=== PATIENT | female | born 1980 | race African-American/Black ===

== ENCOUNTER 2019-03-16 22:34 | Emergency (ER) | payer BC ==
[~2019-03-16 22:34] MED LIST: Iopamidol 370 76% 125 ML VIAL FS ONE
[2019-03-16 22:59] LABS: Clarity Clear (Clear); pH, Urine 6.5 (5.0-9.0)
[2019-03-16 23:00] LABS: Bilirubin Negative (Negative); Blood, Urine Trace (Negative); Glucose, Urine (Dipstick) Negative (Negative); Leukocyte Negative (Negative); Nitrite Negative (Negative); Protein, Urine (Dipstick) Negative (Neg-Trace); Urobilinogen 0.2 mg/dL (0.2-1.0)
[2019-03-16] MEDS ORDERED: Ketorolac Tromethamine 30 MG/ML VIAL ONE (23:03)
[2019-03-16] MEDS ORDERED: Ondansetron PF 4 MG/2 ML Vial ONE (23:03)
[2019-03-16 23:08] LABS: RBC/HPF 0-3 HPF (0-3); WBC/HPF 0-3 HPF (0-3)
[2019-03-16 23:11] LABS: Hemoglobin 12.3 g/dL (12.0-16.0); Mean Corpuscular HGB CONC 32.3 g/dL (32.0-36.0); Mean Corpuscular Hemoglobin 28.8 pg (27.0-31.0); Mean Corpuscular Volume 89.1 fL (78.0-98.0); Mean Platelet Volume 7.5 fL (7.4-10.4); Platelet Count 366 thou/uL (130-400); RBC Distribution Width 12.6 % (11.5-14.5); Red Blood Cell (RBC) Count 4.28 mill/uL (4.20-5.40); White Blood Cell (WBC) Count 7.1 thou/uL (4.8-10.8)
[2019-03-16 23:17] LABS: Pregnancy Test - Urine (BHCG) Negative (Negative); Pregu Control Background? CLEAR/WHITE (CLR/WHITE); Pregu Control Bar Appear? YES (CONTROL BAR); Specific Gravity 1.017 (1.002-1.036)
[2019-03-16 23:18] LABS: ALT (SGPT) 26 U/L (8-55); AST (SGOT) 18 U/L (5-34); Albumin 4.2 g/dL (3.5-5.0); Alkaline Phosphatase 65 U/L (40-150); Anion Gap 13 mmol/L (10-20); BUN (Urea Nitrogen) 13 mg/dL (7.0-18.7); Bilirubin, Total 0.3 mg/dL (0.2-1.2); Calc. Creatinine Clearance 0 mL/min (70-130); Calcium 9.4 mg/dL (7.8-10.44); Carbon Dioxide 24 mmol/L (22-29); Chloride 107 mmol/L (98-107); Estimated GFR-MDRD 69; Glucose 108 mg/dL (70-105); Lipase 54 U/L (8-78); Potassium 4.1 mmol/L (3.5-5.1); Protein, Total 7.2 g/dL (6.0-8.3); Sodium 140 mmol/L (136-145)
[2019-03-16 23:43] LABS: Eosinophils 3 % (0-10); Lymphocytes 59 % (21-51); MDiff Complete? YES; Monocytes 8 % (0-10); Neutrophil 27 % (42-75); Platelet Morphology Comment Appears Adequate; RBC Morphology Normal; Reactive Lymphocytes 1 % (0-10)
[2019-03-17] MEDS ORDERED: Morphine 4 MG/ML VIAL ONE (00:17)
--- NOTE | 2019-03-17 08:25 | CT ---
PRELIMINARY REPORT/[facility]/EMERGENCY AFTER HOURS PROCEDURE: EXAM: CT Abdomen and Pelvis With Contrast EXAM DATE/TIME: 03/16/2019 11:39 PM CLINICAL HISTORY: 38 years old, female; Abdominal pain; Epigastric; Prior surgery; Surgery date: 6+ months; Surgery typ e: Gallbladder removal; Patient HX: Abd pain x 3days TECHNIQUE: Imaging protocol: Axial computed tomography images of the abdomen and pelvis with intravenous contras t. Coronal and sagittal reformatted images were created and reviewed. Radiation optimization: All CT scans at this facility use at least one of these dose optimization techniques: automated exposure con trol; mA and/or kV adjustment per patient size (includes targeted exams where dose is matched to clin ical indication); or iterative reconstruction. Contrast material: ISOVUE; Contrast volume: 100 ml; Co ntrast route: RT AC; COMPARISON: No relevant prior studies available. FINDINGS: Lungs: The visualized portions of the lung bases are normal. ABDOMEN: Liver: There are no focal liver lesions identified. Gallbladder and bile ducts: There has been a cholecystectomy. There is no common bile duct dilation. Pancreas: The pancreas appears normal. No ductal dilatation. Spleen: The spleen is normal. Adrenals: The adrenal glands are normal. Kidneys and ureters: The left kidney is normal. There are multiple right renal hypodensities that can not be further characterized on the current examination. Stomach and bowel: The stomach is normal. There is mild small bowel wall thickening possibly due to u nder distention or enteritis in the appropriate clinical setting. Appendix: A normal appendix is identified. PELVIS: Bladder: Unremarkable as visualized. Reproductive: The uterus is normal. There is a crenated cyst within the RIGHT ovary. ABDOMEN and PELVIS: Intraperitoneal space: Normal. No free air. No significant fluid collection. Bones/joints: No acute fracture. No dislocation. Soft tissues: Unremarkable. Vasculature: Normal. No abdominal aortic aneurysm. Lymph nodes: Normal. No enlarged lymph nodes. IMPRESSION: There is mild small bowel wall thickening possibly due to under distention or enteritis in the approp riate clinical setting. Thank you for allowing us to participate in the care of your patient. Dictated and Authenticated by: Hi Kemp MD 03/17/2019 12:42 AM Central Time ([place] & [place]) FINAL REPORT CT ABDOMEN AND PELVIS WITH CONTRAST: Date: 03/16/[address] of the abdomen and pelvis was done for evaluation of abdominal pain. Axial slices were acqu ired after giving IV contrast, and coronal and sagittal reconstructions were then done. The lung bases are clear. The liver, spleen, pancreas, adrenal glands, kidneys, and abdominal aorta show no acute findings. The re has been a prior cholecystectomy. A few subcentimeter hypodensities in the right kidney are statis tically apt to be cysts. Ultrasound would be confirmatory. There is no distention of bowel. One could argue that some of the small bowel wall may be minimally t hickened, at most. Otherwise, the bowel is unremarkable. The appendix appears normal. No free air or free fluid seen. CT of the pelvis revealed no pelvic masses, inflammatory changes, or free fluid. There may be a small cyst or dominant follicle in the right adnexa under 2 cm in size. It is probably not significant. Th e bony pelvis is unremarkable. There may be some slight central bulging of the L4-L5 disc without any definite impingement. IMPRESSION: No definite acute findings. At most, there may be some very minimal thickening of the some of the sma ll bowel loops, which could be seen in mild enteritis. Report in agreement with preliminary reading by Kelsea. POS: HOME
== END 2019-03-17 01:05 | disposition home or self-care (01) ==
LOC: BURERS 22:34
DX: K52.9 Noninfective gastroenteritis and colitis, unspecified (principal)
CPT/HCPCS: 74177; 80053; 81003; 81015; 81025; 83690; 85025; 96361; 96374; 96375; J1885; J2270; J2405; Q9967